=== PATIENT | female | born 1950 | race Caucasian/White ===

== ENCOUNTER 2021-09-15 06:34 | Day surgery (SDC) | payer MEDICARE, OTHER ==
[2021-09-08 14:25] LABS: BASOPHILS % (AUTO) 0.5 % (0-1); EOSINOPHILS # (AUTO) 0.1 X10'3 (0-0.9); EOSINOPHILS % (AUTO) 1.5 % (0-6); LYMPHOCYTES # (AUTO) 2.9 X10'3 (1.1-4.8); LYMPHOCYTES % (AUTO) 38.1 % (21-51); MEAN CORPUSCULAR HEMOGLOBIN 30.5 PG (27.0-31.0); MEAN CORPUSCULAR HGB CONC 33.3 g/dL (33.0-36.5); MEAN CORPUSCULAR VOLUME 91.5 FL (78-98); MEAN PLATELET VOLUME 7.9 FL (7.4-10.4); MONOCYTES # (AUTO) 0.6 X10'3 (0-0.9); MONOCYTES % (AUTO) 8.1 % (2-12); NEUTROPHILS % (AUTO) 51.8 % (42-75); PRE OP HEMATOCRIT 42.9 % (35.0-45.0); PRE OP HEMOGLOBIN 14.3 g/dL (12.0-16.0); PRE OP PLATELET COUNT 359 X10'3 (140-440); RED BLOOD COUNT 4.68 X10'6 (4.20-5.60); RED CELL DISTRIBUTION WIDTH 13.8 % (11.5-14.5)
[2021-09-08 14:36] LABS: PRE OP INR 1.1 INR; PRE OP PROTIME 11.2 SECONDS (9.0-12.0)
[2021-09-08 14:49] LABS: ALBUMIN 4.1 G/DL (3.4-5.0); ALBUMIN/GLOBULIN RATIO 0.9 (1.1-1.5); ALKALINE PHOSPHATASE 168 IU/L (46-116); BLOOD UREA NITROGEN 17 MG/DL (7-18); BUN/CREATININE RATIO 17.7 (6.6-38.0); CALCIUM 9.2 MG/DL (8.5-10.1); CHLORIDE 104 MMOL/L (99-107); CREATININE 0.96 MG/DL (0.40-0.90); PRE OP ALT 27 U/L (30-65); PRE OP ANION GAP 9 (8-16); PRE OP AST 26 U/L (10-37); PRE OP BILIRUB, TOTAL 0.4 MG/DL (0.0-1.0); PRE OP GLUCOSE 84 MG/DL (70-104); PRE OP SODIUM 144 MMOL/L (135-145); TOTAL CARBON DIOXIDE 31.5 MMOL/L (24-32); TOTAL PROTEIN 8.5 G/DL (6.4-8.2); eGFR 57 ML/MIN
[2021-09-08 14:50] LABS: CLARITY,URINE SLIGHTLY CLOUDY (Clear); COLOR,URINE YELLOW (Yellow); GLUCOSE, URINE NEGATIVE (Neg); KETONES,URINE NEGATIVE (Neg); LEUKOCYTE ESTERASE ,URINE MODERATE (Neg); NITRITES, URINE NEGATIVE (Neg); OCCULT BLOOD,URINE NEGATIVE (Neg); PROTEIN,URINE NEGATIVE (Neg); UROBILINOGEN,URINE 0.2 E.U/dL (0.2-1.0)
[2021-09-08 14:50] LABS: PRE OP POTASSIUM 3.1 MMOL/L (3.4-5.1)
[2021-09-08 14:51] LABS: UA COLLECTION TYPE CLN CATCH MIDSTREAM
[2021-09-08 14:58] LABS: SQUAMOUS EPITHELIAL CELL,UR MANY /LPF (FEW); WBC,URINE 50-100 /HPF (0-4)
[2021-09-08 14:59] LABS: BACTERIA,URINE 2+ /HPF (Neg); RBC,URINE NONE SEEN /HPF (0-2)
[~2021-09-15] VITALS: Ht 170.2 cm; Wt 97.3 kg
[2021-09-15] VITALS (15 sets, daily range): BP systolic 105–151; BP diastolic 70–92
[~2021-09-15 06:34] MED LIST: AMLODIPINE PO; OLAN20TA34 PO; VENL150C58 PO; ceFAZolin inj. 2,000 MG in dextrose 5%-water 100 ML IV ONE; famotidine 20mg tablet PO ONE; ringers solution, lacted 1,000 ML IV SCH
[2021-09-15] MEDS ORDERED: bacitracin 15gm ointment TP ONE (06:44)
[2021-09-15] MEDS ORDERED: BUPIVAcaine/PF 2.5mg/ml (0.25%) 10ml vial ONE (06:44)
[2021-09-15 07:30] LABS: ISTAT CREATININE 0.7 mg/dL (0.6-1.1); ISTAT HGB 12.9 g/dl (12.0-16.0); ISTAT IONIZED CALCIUM 1.22 mmol/L (1.03-1.32); POC BUN/CREATININE RATIO 31.4 (6.6-38.0)
[2021-09-15] MEDS ORDERED: fentaNYL/PF 50MCG/1 ML 2ML syringe ONE (08:18)
[2021-09-15] MEDS ORDERED: midazolam 1 mg/ML 2ml injection ONE (08:18)
[2021-09-15] MEDS ORDERED: propofol inj 20 ML IV ONE ×2 (08:18→08:31)
[2021-09-15] MEDS ORDERED: morphine 4 MG/ML inj SYRINge IV PRN (09:00)
[2021-09-15] MEDS ORDERED: morphine 2 MG/ML inj. syringe IV PRN (09:00)
[2021-09-15] MEDS ORDERED: ondansetron/PF 4mg/2ml inj IV PRN (09:00)
[2021-09-15] MEDS ORDERED: ringers solution, lacted 1,000 ML IV SCH (09:00)
[2021-09-15] MEDS ORDERED: meperidine/PF 25mg/ml syringe IV PRN ×3 (09:00)
[2021-09-15] MEDS ORDERED: proCHLORperazine 10 MG/2 ml inj IV PRN (09:00)
--- NOTE | 2021-09-15 09:56 | NUR ---
Received from OR via [facility], accompanied by Anesthesiologist TAMMY and report given by Anesthesiolgist. PT IS AWAKE AND ANSWERING QUESTIONS APPROPRIATELY, MOVING ALL EXTREMITIES. PT PLACED ON BEDSIDE MONITOR, VSS. PT IS IN SR WITH RATE IN 90'S. PT HAS 20G PIV TO RT HAND WITH LR INFUSING ORDERED. DRSG TO RT FOOT IS CDI. PT DENIES PAIN AT THIS TIME. WILL CONTINUE TO ASSESS.
--- NOTE | 2021-09-15 12:17 | NUR ---
ALL DISCHARGE CRITERIA HAS BEEN MET. VSS, PAIN AT A TOLERABLE LEVEL, VOIDING AND ABLE TO SAFELY AMBULATE AND TRANSFER SELF. IV TAKEN OUT WITHOUT ANY COMPLICATIONS. ALL DISCHARGE INSTRUCTIONS COVERED WITH PATIENT AND ALL QUESTIONS ANSWERED. PATIENT TAKEN OUT VIA WHEELCHAIR TO PERSONAL VEHICLE WHERE SISTER DROVE PATIENT HOME.
== END 2021-09-15 12:12 | disposition home or self-care (01) ==
LOC: PAS 06:34
PROVIDERS: ATTEND Podiatrist Foot & Ankle Surgery
DX: M20.21 Hallux rigidus, right foot (principal); I10 Essential (primary) hypertension; F20.9 Schizophrenia, unspecified; Z90.13 Acquired absence of bilateral breasts and nipples; Z96.641 Presence of right artificial hip joint; Z79.01 Long term (current) use of anticoagulants; Z79.899 Other long term (current) drug therapy; Z98.890 Other specified postprocedural states; Z88.8 Allergy status to other drugs, medicaments and biological substances
CPT/HCPCS: 28291; 36415; 73620; 80047; 80053; 81001; 85025; 85610; 85730; 93880; A6222; C1713; J0690; J2250; J2704; J3010; J3490; J7030; J7060; J7120; Z7506; Z7508; Z7512; 76000; A4618; A6253; A6446; A6449; A7000

== ENCOUNTER 2022-05-11 11:25 | Inpatient (IN) | payer BC, MEDICARE, OTHER ==
[~2022-05-11] VITALS: Ht 170.2 cm; Wt 55.3 kg
[~2022-05-11 11:25] MED LIST changes: -ceFAZolin inj. 2,000 MG in dextrose 5%-water 100 ML IV ONE; -famotidine 20mg tablet PO ONE; -ringers solution, lacted 1,000 ML IV SCH
--- NOTE | 2022-05-11 14:00 | NUR ---
SPOKE TO DAUGHTER GERMAN VIA TELEPHONE AT THIS TIME- SHE STATES SHE WILL COME TO HOSPITAL AND WOULD LIKE TO SPEAK WITH MD CONCERNING PT PSYCHOSIS. MD WAS MADE AWARE
--- NOTE | 2022-05-11 16:00 | NUR ---
PT STILL REFUSING CARE AT THIS TIME. DAUGHTER AT BEDSIDE.
--- NOTE | 2022-05-11 16:05 | NUR ---
PT REFUSING REPEAT VITALS.
[2022-05-11] MEDS ORDERED: LORazepam 2 mg/ml vial IM ONE (16:10)
[2022-05-11] MEDS ORDERED: ketamine 50 mg/ml 10ml vial IM ONE (17:00)
[2022-05-11] MEDS ORDERED: normal saline 1000ml 1,000 ML IV ONE ×2 (18:05→18:10)
[2022-05-11] MEDS ORDERED: RISP0.253 PO (18:24)
[2022-05-11] MEDS ORDERED: RISP0.5T65 PO (18:24)
[2022-05-11] MEDS ORDERED: DIVA125T31 PO (18:24)
[2022-05-11] MEDS ORDERED: AMLO5TAB16 PO (18:24)
[2022-05-11] MEDS ORDERED: AREDS EYE PO (18:26)
[2022-05-11] MEDS ORDERED: CHOL10006 PO (18:26)
[2022-05-11] MEDS ORDERED: [UNRECOGNIZED DRUG - OTHER] PO (18:26)
[2022-05-11] MEDS ORDERED: FOLI0.4T14 PO (18:27)
[2022-05-11] MEDS ORDERED: ASPI-1265 PO (18:27)
[2022-05-11] MEDS ORDERED: FERR-39 PO (18:29)
[2022-05-11] MEDS ORDERED: MULT-1074 PO (18:29)
--- NOTE | 2022-05-11 19:02 | NUR ---
PT NOW COOPERATIVE WITH BLOOD DRAW AND VITALS WITH DAUGHTER AT [facility].
[2022-05-11 19:09] LABS: BASOPHILS % (AUTO) 0.3 % (0-1); EOSINOPHILS % (AUTO) 0.1 % (0-6); HEMATOCRIT 42.5 % (35.0-45.0); HEMOGLOBIN 14.4 g/dl (12.0-16.0); LYMPHOCYTES % (AUTO) 18.7 % (21-51); MEAN CORPUSCULAR HEMOGLOBIN 31.3 PG (27.0-31.0); MEAN CORPUSCULAR HGB CONC 33.9 g/dL (33.0-36.5); MEAN CORPUSCULAR VOLUME 92.6 FL (78-98); MEAN PLATELET VOLUME 7.6 FL (7.4-10.4); MONOCYTES % (AUTO) 9.4 % (2-12); NEUTROPHILS # (AUTO) 7.6 X10'3 (1.8-7.7); NEUTROPHILS % (AUTO) 71.5 % (42-75); PLATELET COUNT 369 X10'3 (140-440); RED BLOOD COUNT 4.59 X10'6 (4.20-5.60); WHITE BLOOD COUNT 10.6 X10'3 (4.5-11.0)
[2022-05-11 19:23] LABS: ALANINE AMINOTRANSFERASE 19 U/L (12-78); ALBUMIN 4.4 G/DL (3.4-5.0); ALBUMIN/GLOBULIN RATIO 1.2 (1.1-1.5); ALKALINE PHOSPHATASE 131 IU/L (46-116); ANION GAP 11 (8-16); ASPARTATE AMINO TRANSFERASE 26 U/L (10-37); BILIRUBIN,TOTAL 0.5 MG/DL (0.1-1.0); BLOOD UREA NITROGEN 31 MG/DL (7-18); CALCIUM 9.8 MG/DL (8.5-10.1); CHLORIDE 99 MMOL/L (99-107); CREATININE 1.24 MG/DL (0.40-0.90); GLUCOSE 96 MG/DL (70-104); POTASSIUM 3.6 MMOL/L (3.5-5.1); SODIUM 137 MMOL/L (135-145); TOTAL CARBON DIOXIDE 27.1 MMOL/L (24-32); TOTAL PROTEIN 8.2 G/DL (6.4-8.2); eGFR 43 ML/MIN
[2022-05-11 19:33] LABS: ETHANOL < 0.010 GM/DL (0.0-0.010)
[2022-05-11 20:53] LABS: URINE AMPHETAMINE SCREEN NEGATIVE (Neg); URINE BARBITUATE SCREEN NEGATIVE (Neg); URINE BENZODIAZEPINES SCREEN NEGATIVE (Neg); URINE CANNABINOID SCREEN NEGATIVE (Neg); URINE COCAINE SCREEN NEGATIVE (Neg); URINE METHADONE SCREEN NEGATIVE (Neg); URINE OPIATE SCREEN NEGATIVE (Neg); URINE PHENCYCLIDINE SCREEN NEGATIVE (Neg)
[2022-05-11 21:25] LABS: CLARITY,URINE CLEAR (Clear); COLOR,URINE YELLOW (Yellow); GLUCOSE, URINE NEGATIVE (Neg); KETONES,URINE 15 mg/dl (Neg); LEUKOCYTE ESTERASE ,URINE NEGATIVE (Neg); NITRITES, URINE NEGATIVE (Neg); OCCULT BLOOD,URINE NEGATIVE (Neg); PROTEIN,URINE NEGATIVE (Neg); UROBILINOGEN,URINE 0.2 E.U/dL (0.2-1.0)
[2022-05-11 21:29] LABS: UA COLLECTION TYPE CLN CATCH MIDSTREAM
--- NOTE | 2022-05-11 21:45 | NUR ---
Patient was recieved at 2144, transfered from [facility]. Patient was brought in from [facility] due to being found walking around on side walk with only a vijay on. Patient locked herself in bathroom and had to be drilled out of room. Patient has been sleeping since ariving on floor. Patients packet has been sent.
--- NOTE | 2022-05-11 23:45 | NUR ---
Patient currently sleeping. Patient appears unbothered by noise on floor.
--- NOTE | 2022-05-12 01:45 | NUR ---
Patient still sleeping. Patients breaths are even and unlabored.
--- NOTE | 2022-05-12 03:45 | NUR ---
Patient observed sleeping. Patient has not woken up to go to restroom or ask for food.
--- NOTE | 2022-05-12 07:00 | NUR ---
Pt. asleep in bed, on her back, no distress noted.
--- NOTE | 2022-05-12 09:00 | NUR ---
Pt. asleep on her back, no distress noted.
--- NOTE | 2022-05-12 10:58 | NUR ---
Pt. asleep, unlabored breathing, no distress noted.
--- NOTE | 2022-05-12 11:54 | NUR ---
Pt. awake, offered a late meal, and denies all MH symptoms. She is pleseant and cooperative, ate 50% breakfast, and laid back in bed.
--- NOTE | 2022-05-12 11:55 | NUR ---
Reviewed medication list with pt. She reports she quit taking Derpakote and Risperdol about a month ago.
--- NOTE | 2022-05-12 12:18 | NUR ---
Pt. awake, sitting on the side of her bed eating lunch.
--- NOTE | 2022-05-12 14:15 | NUR ---
Pt. resting in bed, no distress noted.
--- NOTE | 2022-05-12 16:15 | NUR ---
Pt. awake and eating a snack, no distress noted.
--- NOTE | 2022-05-12 18:04 | NUR ---
Pt. eating dinner, no distress noted.
--- NOTE | 2022-05-12 18:06 | NUR ---
pt informed tech their BP may be high due to them not taking their BP meds today, tech informed RN of pt BP.
--- NOTE | 2022-05-12 18:55 | NUR ---
Patient awake and alert and wanting to talk on the phone to family. Patient is pleasant and in no distress. Continue to monitor.
--- NOTE | 2022-05-12 19:34 | NUR ---
Client to be admitted to [facility] RM 331B for Psychosis NOS per HERB Saleem.
--- NOTE | 2022-05-12 20:46 | NUR ---
Patient given warm clothes as it is very cold in ED OF. Patient attempting to sleep. No distress observed. Continue to monitor.
[2022-05-12] MEDS ORDERED: magnesium hydroxide 30ml (MOM) UD suspension PO PRN (22:15)
[2022-05-12] MEDS ORDERED: acetaminophen 325mg tablet PO PRN (22:15)
[2022-05-12] MEDS ORDERED: loperamide 2mg capsule PO PRN (22:15)
[2022-05-12] MEDS ORDERED: mag hydrox/Alum hydrox/simeth 30ml oral suspension PO PRN (22:15)
[2022-05-12 22:24] VITALS: BP 145/66
[2022-05-12] MEDS ORDERED: traZODone 50mg tablet PO PRN (23:15)
--- NOTE | 2022-05-12 23:16 | NUR ---
Pt. reported insomnia, this was endorsed to HERB Calvo and received an order for PRN Trazodone 50mg may repeat X1.
[2022-05-12] MEDS: acetaminophen 325mg tablet PO PRN (23:39)
--- NOTE | 2022-05-13 01:16 | NUR ---
ADMIT PROGRESS NOTE: LEGAL HOLD: 5150 for GD REASON FOR ADMIT: Client was found walking in the rain in a bathrobe making paranoid statements. 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 INTERVENTIONS: Admission assessments. Q 15 min checks for safety. RESPONSE: Client arrived on the unit at 22:07 in a wheelchair, accompanied by Liana Cifuentes. Client was cooperative, vital signs were taken, took a shower. Client was found walking in the rain in a bathrobe. Client receives service's at [facility]. Client stated there are "people are on the roof doing horrible things". Client believes "everyone is doing Meth". Client reported she stopped taking her Depakote because it prevents her from "gaining weight". Client was pleasant and cooperative during admission.
[2022-05-13] MEDS ORDERED: [UNRECOGNIZED DRUG - OTHER] PO SCH (01:20)
[2022-05-13] MEDS ORDERED: traZODone 50mg tablet PO PRN (03:20)
[2022-05-13 07:54] LABS: HEMOGLOBIN A1C 5.7 % (4.5-6.2)
[2022-05-13 08:00] VITALS: BP 117/73
[2022-05-13] MEDS ORDERED: amLODIPine 5mg tablet PO SCH (08:00)
[2022-05-13] MEDS ORDERED: venlafaxine XR 75mg capsule (Q24H) PO SCH (08:00)
[2022-05-13 08:03] LABS: CHOL/HDL RATIO 2.1 (0.00-4.99); CHOLESTEROL 164 MG/DL (0-200); HDL CHOLESTEROL 77 MG/DL (35-60); LDL CHOLESTEROL 67 MG/DL (50-100); TRIGLYCERIDES 77 MG/DL (20-135)
[2022-05-13] MEDS: cholecalciferol (vitamin D3) 1,000 unit (25mcg) tablet PO SCH (09:23)
[2022-05-13] MEDS: multivitamins, therapeutics tablet PO SCH (09:23)
[2022-05-13] MEDS ORDERED: risperiDONE 0.25mg tablet PO PRN (12:05)
[2022-05-13] MEDS: ferrous sulfate 325mg tablet PO SCH (13:48)
[2022-05-13] MEDS: aspirin 81mg tab.chew PO SCH (13:48)
[2022-05-13] MEDS: folic acid 0.4mg tablet PO SCH (13:48)
--- NOTE | 2022-05-13 16:47 | NUR ---
ADMIT PROGRESS NOTE: REASON FOR ADMIT: Client was found walking in the rain in a bathrobe making paranoid statements. .Interventions: Maintained a safe and supportive environment, ensured contract for safety, provided clear and simple instructions, attempted to orient to reality, provided active listening and positive encouragement, reassured pt. of his safety on the unit, and maintained Q 15min safety checks. RESPONSE: Patient chose to sleep, instead of eat breakfast, Ill eat at lunchtime. Patient was up for lunch, then stayed in the room for a while before going back to bed. Shes forgetful and forgets where her room is. Patient no longer has paranoid thoughts of people on the roofs using meth. She is back on her medications, but it will take a while to become therapeutic. Patient is pleasant and cooperative with staff. She has good attitude and is mostly happy. Plan: Pt. continues to require medication adjustments and a safe and supportive environment.
[2022-05-13] MEDS: acetaminophen 325mg tablet PO PRN (17:39)
[2022-05-13 19:00] VITALS: BP 184/114
[2022-05-13] MEDS: divalproex sod 250mg ER (24-hour) tablet PO SCH (20:44)
[2022-05-13] MEDS: olanzapine 10mg tablet PO SCH ×2 (20:44→21:50)
[2022-05-13] MEDS ORDERED: risperiDONE 0.25mg tablet PO SCH (21:00)
[2022-05-13] MEDS ORDERED: divalproex sodium 500mg tablet.DR PO SCH (21:00)
[2022-05-13] MEDS ORDERED: risperiDONE 0.5mg tablet PO SCH (21:00)
[2022-05-13] MEDS: [UNRECOGNIZED DRUG - OTHER] PO SCH (21:00)
[2022-05-13] MEDS ORDERED: amLODIPine 5mg tablet PO ONE (21:30)
--- NOTE | 2022-05-14 04:16 | NUR ---
NURSE PROGRESS NOTE: REASON FOR ADMIT: Client was found walking in the rain in a bathrobe making paranoid statements. Interventions: Maintained a safe and supportive environment, ensured contract for safety, provided clear and simple instructions, attempted to orient to reality, provided active listening and positive encouragement, reassured pt. of his safety on the unit, and maintained Q 15min safety checks. RESPONSE: Patient is pleasant and cooperative with care; compliant with medication. Patient's BP elevated; HERB Soria notified and one time dose of amlodipine provided. Repeat Zyprexa provided per patient request as she was having difficulty getting to sleep. Patient denies SI, HI, A/VH; no apparent delusions expressed. She is social with staff and her roommate. She is observed sleeping and does not appear to be having difficulty. Plan: Pt. continues to require medication adjustments and a safe and supportive environment.
[2022-05-14 08:00] VITALS: BP 100/63
[2022-05-14] MEDS: amLODIPine 5mg tablet PO SCH (08:00)
[2022-05-14] MEDS: venlafaxine XR 75mg capsule (Q24H) PO SCH (08:11)
[2022-05-14] MEDS: cholecalciferol (vitamin D3) 1,000 unit (25mcg) tablet PO SCH (08:11)
[2022-05-14] MEDS: multivitamins, therapeutics tablet PO SCH (08:11)
[2022-05-14] MEDS: aspirin 81mg tab.chew PO SCH (12:09)
[2022-05-14] MEDS: folic acid 0.4mg tablet PO SCH (12:09)
[2022-05-14] MEDS: ferrous sulfate 325mg tablet PO SCH (12:09)
--- NOTE | 2022-05-14 14:34 | NUR ---
NURSING PROGRESS NOTE: REASON FOR ADMIT: Client was found walking in the rain in a bathrobe making paranoid statements. Interventions: Maintained a safe and supportive environment, ensured contract for safety, provided clear and simple instructions, attempted to orient to reality, provided active listening and positive encouragement, reassured pt. of his safety on the unit, and maintained Q 15min safety checks. RESPONSE: Patient is pleasant and cooperative with care; compliant with medication. She denies SI, HI, A/VH; no apparent delusions expressed. Patient is mostly isolative to her room; social with her roommate and went out to the patio this shift. Plan: Pt. continues to require medication adjustments and a safe and supportive environment.
[2022-05-14 19:37] VITALS: BP 142/112
[2022-05-14] MEDS: LORazepam 0.5 MG tablet PO PRN (20:46)
[2022-05-14] MEDS: olanzapine 10mg tablet PO SCH (20:46)
[2022-05-14] MEDS: divalproex sod 250mg ER (24-hour) tablet PO SCH (20:46)
[2022-05-14] MEDS: [UNRECOGNIZED DRUG - OTHER] PO SCH (20:47)
[2022-05-14 20:57] VITALS: BP 154/97
[2022-05-14] MEDS ORDERED: amLODIPine 5mg tablet PO ONE (21:15)
--- NOTE | 2022-05-15 03:14 | NUR ---
NURSING PROGRESS NOTE: REASON FOR ADMIT: Client was found walking in the rain in a bathrobe making paranoid statements. Interventions: Maintained a safe and supportive environment, ensured contract for safety, provided clear and simple instructions, attempted to orient to reality, provided active listening and positive encouragement, reassured pt. of his safety on the unit, and maintained Q 15min safety checks. RESPONSE: Patient is pleasant and cooperative with care; compliant with medication. One time order for Amlodipine 5mg provided for elevated BP. PRN Ativan for c/o increased anxiety. Patient denies SI, HI, A/VH; no apparent delusions expressed. She continues to isolate to her room; social with her roommate. Patient is observed sleeping and does not appear to be having difficulty. Plan: Pt. continues to require medication adjustments and a safe and supportive environment.
[2022-05-15 08:00] VITALS: BP 118/64
[2022-05-15] MEDS: multivitamins, therapeutics tablet PO SCH (08:34)
[2022-05-15] MEDS: amLODIPine 5mg tablet PO SCH (08:34)
[2022-05-15] MEDS: venlafaxine XR 75mg capsule (Q24H) PO SCH (08:34)
[2022-05-15] MEDS: cholecalciferol (vitamin D3) 1,000 unit (25mcg) tablet PO SCH (08:34)
[2022-05-15] MEDS: folic acid 0.4mg tablet PO SCH (12:07)
[2022-05-15] MEDS: ferrous sulfate 325mg tablet PO SCH (12:07)
[2022-05-15] MEDS: aspirin 81mg tab.chew PO SCH (12:07)
--- NOTE | 2022-05-15 16:19 | NUR ---
NURSING PROGRESS NOTE: Krystal REASON FOR ADMIT: Client was found walking in the rain in a bathrobe making paranoid statements. Interventions: Maintained a safe and supportive environment, ensured contract for safety, provided clear and simple instructions, attempted to orient to reality, provided active listening and positive encouragement, reassured pt. of his safety on the unit, and maintained Q 15min safety checks. RESPONSE: Pt noted to be pleasant and cooperative throughout entire day. No noted elevated BP this shift. No c/o increased anxiety noted. No noted c/o SI/HI or AH/VH. Pt social with roommate in room and in community room this shift. Pt daughter Alex called to speak with this nurse today and was rather worried about the standard of care her mom was receiving at the hospital, claimed her mom was narcissistic and severely manipulative and felt as if the MDs and nursing were unaware and unable to handle her moms mental acuity. Daughter was reassured that her mom was being taken care of appropriately and staff would contact her with any question, concerns, or updates if necessary. Plan: Pt. continues to require medication adjustments and a safe and supportive environment.
[2022-05-15 19:24] VITALS: BP 140/93
[2022-05-15] MEDS: [UNRECOGNIZED DRUG - OTHER] PO SCH (21:00)
[2022-05-15] MEDS: olanzapine 10mg tablet PO SCH (21:11)
[2022-05-15] MEDS: divalproex sod 250mg ER (24-hour) tablet PO SCH (21:11)
[2022-05-16] MEDS: olanzapine 10mg tablet PO SCH (00:10)
--- NOTE | 2022-05-16 03:57 | NUR ---
NURSING PROGRESS NOTE: REASON FOR ADMIT: Client was found walking in the rain in a bathrobe making paranoid statements. Interventions: Maintained a safe and supportive environment, ensured contract for safety, provided clear and simple instructions, attempted to orient to reality, provided active listening and positive encouragement, reassured pt. of his safety on the unit, and maintained Q 15min safety checks. RESPONSE: Patient is pleasant and cooperative with care; complaint with medication. Repeat Zyprexa provided for c/o difficulty getting to sleep. Patient denies SI, HI, A/VH; no apparent delusions expressed. Patient isolates to her room but participated in HS snack prior to bed; appears to be sleeping without difficulty. Plan: Pt. continues to require medication adjustments and a safe and supportive environment.
[2022-05-16 07:30] VITALS: BP 132/77
[2022-05-16] MEDS: venlafaxine XR 75mg capsule (Q24H) PO SCH (07:50)
[2022-05-16] MEDS: amLODIPine 5mg tablet PO SCH (07:50)
[2022-05-16] MEDS: cholecalciferol (vitamin D3) 1,000 unit (25mcg) tablet PO SCH (07:50)
[2022-05-16] MEDS: multivitamins, therapeutics tablet PO SCH (07:50)
[2022-05-16] MEDS: acetaminophen 325mg tablet PO PRN (11:11)
[2022-05-16] MEDS: ferrous sulfate 325mg tablet PO SCH (12:30)
[2022-05-16] MEDS: folic acid 0.4mg tablet PO SCH (12:30)
[2022-05-16] MEDS: aspirin 81mg tab.chew PO SCH (12:30)
--- NOTE | 2022-05-16 17:44 | NUR ---
NURSING PROGRESS NOTE: REASON FOR ADMIT: Client was found walking in the rain in a bathrobe making paranoid statements. Interventions: Maintained a safe and supportive environment, ensured contract for safety, provided clear and simple instructions, attempted to orient to reality, provided active listening and positive encouragement, reassured pt. of his safety on the unit, and maintained Q 15min safety checks. RESPONSE: RN received pt. asleep in bed at start of shift. Pt. awoke and resting in bed. Pt. requested AM medications. Pt. ate breakfast and went back to her room and slept. Pt.s daughter visited. 1:1 done at bedside, pt. denies SI/HI, A/V hallucinations. Pt. states, Im embarrassed about how I got here. I thought all these people were doing meth Kaycee never even seen meth I started walking outside without any shoes and now Im here. Pt. was social with peers and staff but isolated to her room much of the day, observed reading her book. Plan: Pt. continues to require medication adjustments and a safe and supportive environment.
[2022-05-16 20:00] VITALS: BP 140/89
[2022-05-16] MEDS: [UNRECOGNIZED DRUG - OTHER] PO SCH (20:32)
[2022-05-16] MEDS: divalproex sod 250mg ER (24-hour) tablet PO SCH (20:36)
[2022-05-16] MEDS: olanzapine 10mg tablet PO PRN (20:40)
[2022-05-16] MEDS: LORazepam 0.5 MG tablet PO PRN (22:38)
--- NOTE | 2022-05-17 00:18 | NUR ---
NURSING PROGRESS NOTE: REASON FOR ADMIT: Client was found walking in the rain in a bathrobe making paranoid statements. Interventions: Maintained a safe and supportive environment, ensured contract for safety, provided clear and simple instructions, attempted to orient to reality, provided active listening and positive encouragement, reassured pt. of his safety on the unit, and maintained Q 15min safety checks. RESPONSE: Patient is pleasant and cooperative with care. Repeat Zyprexa provided for c/o difficulty getting to sleep. Patient denies SI, HI, A/VH; no apparent delusions expressed. At midnight pt nicely asked and was grateful for kimberlee arvizu and keenan. Plan: Pt. continues to require medication adjustments and a safe and supportive environment. Addendum: 05/17/22 at 0053 by Chad Delaney LVN no repeat on zyprexa just one dose at med pass, and at 2230 ativan was given to help with sleep
[2022-05-17 07:30] VITALS: BP 117/79
[2022-05-17] MEDS: cholecalciferol (vitamin D3) 1,000 unit (25mcg) tablet PO SCH (08:23)
[2022-05-17] MEDS: venlafaxine XR 75mg capsule (Q24H) PO SCH (08:23)
[2022-05-17] MEDS: multivitamins, therapeutics tablet PO SCH (08:23)
[2022-05-17] MEDS: amLODIPine 5mg tablet PO SCH (08:24)
--- NOTE | 2022-05-17 09:28 | NUR ---
Initial: Pt admit DX HTN and paranoid schizophrenia per EMR. PO fluctuates ~55% avg regular diet w/ snacks and occasional breakfast refusals likely just shy of meeting estimated needs. Will add smoothies WL to assist meeting needs; dietary notified. LBM 05/15 per EMR. Will continue to follow Rec: 1. continue regular diet; encourage PO 2. smoothie WL to assist meeting needs 3. bowel care per rx 4. weekly wts Addendum: 05/17/22 at [address] Amended: Links added. Addendum: 05/17/22 at [address] Initial: Pt admit DX HTN and paranoid schizophrenia per EMR. PO fluctuates ~55% avg regular diet w/ snacks and occasional breakfast refusals likely just shy of meeting estimated needs. Will add smoothies WL to assist meeting needs; dietary notified. LBM 05/15 per EMR. Will continue to follow Rec: 1. continue regular diet; encourage PO 2. peach smoothie WL to assist meeting needs; pt only likes peaches and pears dislikes all other fruit per pt 3. bowel care per rx 4. weekly wts
[2022-05-17] MEDS: aspirin 81mg tab.chew PO SCH (13:00)
[2022-05-17] MEDS: ferrous sulfate 325mg tablet PO SCH (13:00)
[2022-05-17] MEDS: folic acid 0.4mg tablet PO SCH (13:00)
--- NOTE | 2022-05-17 17:38 | NUR ---
NURSING PROGRESS NOTE: REASON FOR ADMIT: Client was found walking in the rain in a bathrobe making paranoid statements. Interventions: Maintained a safe and supportive environment, ensured contract for safety, provided clear and simple instructions, attempted to orient to reality, provided active listening and positive encouragement, reassured pt. of his safety on the unit, and maintained Q 15min safety checks. RESPONSE: RN received pt. asleep in bed at start of shift. Pt. awoke and ate breakfast and took all medications. Pt. went back to her room and slept most of the AM. 1:1 done at bedside, pt. denies all psych symptoms, stating, I just feel tired. RN performed MOCA on pt. and pt. scored 28/30. Pt. isolated to her room most of the day. Pt. observed reading in her room, but comes out and socialized with female peers during snack times. Pt. c/o increased thirst, states, "It's the normal side effect I get from my medication". Plan: Pt. continues to require medication adjustments and a safe and supportive environment.
[2022-05-17] MEDS: [UNRECOGNIZED DRUG - OTHER] PO SCH (19:44)
[2022-05-17 20:00] VITALS: BP 152/99
[2022-05-17] MEDS: olanzapine 10mg tablet PO SCH (20:20)
[2022-05-17] MEDS: divalproex sod 250mg ER (24-hour) tablet PO SCH (20:21)
[2022-05-17] MEDS: LORazepam 0.5 MG tablet PO PRN (20:24)
[2022-05-17] MEDS: olanzapine 10mg tablet PO PRN (23:59)
--- NOTE | 2022-05-18 00:08 | NUR ---
NURSING PROGRESS NOTE: REASON FOR ADMIT: Client was found walking in the rain in a bathrobe making paranoid statements. Interventions: Maintained a safe and supportive environment, ensured contract for safety, provided clear and simple instructions, attempted to orient to reality, provided active listening and positive encouragement, reassured pt. of his safety on the unit, and maintained Q 15min safety checks. RESPONSE: Patient is pleasant and cooperative with care. When asked before med pass if there was anything I could get her she mentioned ativan. Given at med pass. Midnight aid said she was having hard time sleeping and wanted something for it. Gave prn zyprexa. Patient denies SI, HI, A/VH; no apparent delusions expressed. Plan: Pt. continues to require medication adjustments and a safe and supportive environment.
[2022-05-18] MEDS: acetaminophen 325mg tablet PO PRN ×2 (03:57→21:54)
[2022-05-18 07:30] VITALS: BP 112/71
[2022-05-18] MEDS: cholecalciferol (vitamin D3) 1,000 unit (25mcg) tablet PO SCH (08:50)
[2022-05-18] MEDS: venlafaxine XR 75mg capsule (Q24H) PO SCH (08:50)
[2022-05-18] MEDS: multivitamins, therapeutics tablet PO SCH (08:50)
[2022-05-18] MEDS: amLODIPine 5mg tablet PO SCH (08:50)
[2022-05-18] MEDS: aspirin 81mg tab.chew PO SCH (12:41)
[2022-05-18] MEDS: folic acid 0.4mg tablet PO SCH (12:41)
[2022-05-18] MEDS: ferrous sulfate 325mg tablet PO SCH (12:41)
--- NOTE | 2022-05-18 17:25 | NUR ---
NURSING PROGRESS NOTE: REASON FOR ADMIT: Client was found walking in the rain in a bathrobe making paranoid statements. Interventions: Maintained a safe and supportive environment, ensured contract for safety, provided clear and simple instructions, attempted to orient to reality, provided active listening and positive encouragement, reassured pt. of his safety on the unit, and maintained Q 15min safety checks. RESPONSE: RN received pt. asleep in bed at start of shift. Pt. woken up for breakfast but refused. Pt. took all medications. Pt. went back to sleep and slept most of the AM. Pt. isolated to her room most of the day, coming to the community room for snacks and meals and socialized with female peers but then returns to her room. Pt. observed reading at times and socializing with her roommate. 1:1 done at bedside, pt. appears annoyed with RNs questions. Pt. denies all psych symptoms. Plan: Pt. continues to require medication adjustments and a safe and supportive environment.
[2022-05-18] MEDS ORDERED: polyvinyl alcohol ophthalmic drops 15ml bottle EACHEYE PRN (17:35)
[2022-05-18 19:00] VITALS: BP 130/82
[2022-05-18] MEDS: divalproex sod 250mg ER (24-hour) tablet PO SCH (20:35)
[2022-05-18] MEDS: olanzapine 10mg tablet PO SCH (20:35)
[2022-05-18] MEDS: [UNRECOGNIZED DRUG - OTHER] PO SCH (20:41)
--- NOTE | 2022-05-19 04:26 | NUR ---
NURSING PROGRESS NOTE: REASON FOR ADMIT: Client was found walking in the rain in a bathrobe making paranoid statements. Interventions: Maintained a safe and supportive environment, ensured contract for safety, provided clear and simple instructions, attempted to orient to reality, provided active listening and positive encouragement, reassured pt. of his safety on the unit, and maintained Q 15min safety checks. RESPONSE:Patient was received laying in bed at beginning of shift. Patient requested prn tylenol due to R hip pain. Patient self isolated in room through out shift. Patient took all night medications without issue. Patient got up asking for something to help her sleep. Patient was given her repeat Zyprexa. Patient retuned to bed until getting up hours later wanting to come into rec room to mahendra. Patient was upset when she found out it was too early and retuned to room. Plan: Pt. continues to require medication adjustments and a safe and supportive environment.
[2022-05-19 07:36] VITALS: BP 125/85
[2022-05-19] MEDS: venlafaxine XR 75mg capsule (Q24H) PO SCH (07:53)
[2022-05-19] MEDS: multivitamins, therapeutics tablet PO SCH (07:53)
[2022-05-19] MEDS: amLODIPine 5mg tablet PO SCH (07:54)
[2022-05-19] MEDS: cholecalciferol (vitamin D3) 1,000 unit (25mcg) tablet PO SCH (07:54)
[2022-05-19] MEDS: folic acid 0.4mg tablet PO SCH (12:51)
[2022-05-19] MEDS: ferrous sulfate 325mg tablet PO SCH (12:51)
[2022-05-19] MEDS: aspirin 81mg tab.chew PO SCH (12:51)
--- NOTE | 2022-05-19 14:58 | NUR ---
DISCHARGE PLAN Pt. to discharge back to [facility] tomorrow. Her daughter will pick her up tomorrow morning between 10-11am. Follow up appt has been made at [facility] for follow up for Monday, May 23. Unique Duque LCSW
--- NOTE | 2022-05-19 17:23 | NUR ---
NURSING PROGRESS NOTE: Krystal REASON FOR ADMIT: Client was found walking in the rain in a bathrobe making paranoid statements. Interventions: Maintained a safe and supportive environment, ensured contract for safety, provided clear and simple instructions, attempted to orient to reality, provided active listening and positive encouragement, reassured pt. of his safety on the unit, and maintained Q 15min safety checks. Response: Received Pt in bed sleeping w/o distress at the beginning of this shift. Pt cooperative with vitals and returned to sleep. Pt up to community room for breakfast and ate well. Pt took AM meds w/o issue. Pt cooperative and pleasant in conversation and with AM assessments. Pt was scheduled for discharge, but sister unable to pick her up until tomorrow, so discharge has been delayed. Pt asked for needs to be met appropriately and denies SI/HI. Plan: Pt. continues to require medication adjustments and a safe and supportive environment.
[2022-05-19 19:00] VITALS: BP 123/81
[2022-05-19] MEDS: divalproex sod 250mg ER (24-hour) tablet PO SCH (20:05)
[2022-05-19] MEDS: olanzapine 10mg tablet PO SCH (20:05)
[2022-05-19] MEDS: acetaminophen 325mg tablet PO PRN (20:06)
[2022-05-19] MEDS: [UNRECOGNIZED DRUG - OTHER] PO SCH (20:07)
[2022-05-19] MEDS: olanzapine 10mg tablet PO PRN (22:20)
[2022-05-19] MEDS ORDERED: VENL75CA61 PO (22:51)
[2022-05-19] MEDS ORDERED: FER325T PO (22:51)
[2022-05-19] MEDS ORDERED: AMLO10TA PO (22:51)
[2022-05-19] MEDS ORDERED: MULT-25 PO (22:51)
[2022-05-19] MEDS ORDERED: OLAN10TA73 PO (22:51)
[2022-05-19] MEDS ORDERED: CHOL100046 PO (22:51)
[2022-05-19] MEDS ORDERED: DIVA500T9 PO (22:51)
[2022-05-19] MEDS ORDERED: ASPI81TA53 PO (22:51)
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
[2022-05-20] MEDS: venlafaxine XR 75mg capsule (Q24H) PO SCH (07:31)
[2022-05-20] MEDS: cholecalciferol (vitamin D3) 1,000 unit (25mcg) tablet PO SCH (07:31)
[2022-05-20] MEDS: multivitamins, therapeutics tablet PO SCH (07:32)
[2022-05-20] MEDS: amLODIPine 5mg tablet PO SCH (07:33)
[2022-05-20 08:00] VITALS: BP 131/85
--- NOTE | 2022-05-20 11:48 | NUR ---
Discharge Krystal Patient left with daughter at 1115. Patient signed all discharge paperwork and agreed that all of her possessions were present. Patient also took morning medications without issue. Patient was positive and excited about going home.
== END 2022-05-20 11:15 | disposition home or self-care (01) | DRG 885 ==
LOC: ER 11:25 → ED HOLD 05-12 19:50 → ADULT MH 05-12 22:00
PROVIDERS: ADMIT Psychiatry & Neurology Psychiatry; ATTEND Psychiatry & Neurology Psychiatry
DX: F20.0 Paranoid schizophrenia (principal); E86.0 Dehydration; Z20.822 Contact with and (suspected) exposure to COVID-19; Z60.2 Problems related to living alone; F17.210 Nicotine dependence, cigarettes, uncomplicated; I10 Essential (primary) hypertension; Z79.899 Other long term (current) drug therapy; Z85.3 Personal history of malignant neoplasm of breast; Z98.82 Breast implant status; Z71.6 Tobacco abuse counseling
CPT/HCPCS: 36415; 80053; 80061; 80305; 80320; 81003; 83036; 84443; 85025; 87081; 87811; 96360; 96361; 96372; 99283; 99285; A6258; J2060; J7030